=== PATIENT | female | born 1950 | race Caucasian/White ===

== ENCOUNTER → 2021-07-04 | Outpatient (CLI) | payer OTHER, MEDICAID ==
[~2021-07-04] MED LIST: CENTRUM SILVER1 EAC4 PO; CLONAZEPAM 1 MG1 M1 PO; CRESTOR10 MG PO; DICYCLOMINE HCL20 MG PO; FISH OIL 1,001000 M2 PO; FLAGYL500 MG PO; GLIPIZIDE 10 MG10 MG PO; HYDROCHLOROTHIA25 M2 PO; LEVSIN-SL0.125 MG SL; MEDROLDOSEPACK PO; METFORMIN HCL500 MG PO; MOBIC15 MG PO; NEXIUM20 M1 PO; NORCO 5-325 TA1 EACH PO; PROLIA60 MG/1 ML SUBQ; TENORMIN50 MG PO; TRAMADOL 50 MG50 MG PO; TUMS PO; VITAMIN C500 M1 PO; VITAMIN D1000 UNI1 PO; ZOLOFT50 MG PO; ZYRTEC10 MG PO
== END ==
LOC: M.PC 07:50
PROVIDERS: ATTEND Anesthesiology Pain Medicine
DX: M54.5 Low back pain (principal); M54.6 Pain in thoracic spine; E11.9 Type 2 diabetes mellitus without complications; M19.90 Unspecified osteoarthritis, unspecified site; K58.9 Irritable bowel syndrome, unspecified; F32.9 Major depressive disorder, single episode, unspecified; I10 Essential (primary) hypertension; M81.0 Age-related osteoporosis without current pathological fracture; J30.2 Other seasonal allergic rhinitis; K21.9 Gastro-esophageal reflux disease without esophagitis; F41.9 Anxiety disorder, unspecified